=== PATIENT | female | born 2000 | race Caucasian/White ===

== ENCOUNTER 2020-07-10 19:53 | Emergency (ER) | payer OTHER ==
[~2020-07-10] VITALS: Ht 162.6 cm; Wt 63.4 kg
--- NOTE | 2020-07-10 20:04 | NUR ---
TOXICOLOGY TEACHER: EKG DONE IN TRIAGE
--- NOTE | 2020-07-10 20:15 | NUR ---
19 YEAR OLD FEMALE TO ED FOR ANXIETY AFTER INGESTING AN EDIBLE COMPOSED OF MARIJUANA. SHE IS TACHYPNEIC, ANXIOUS, AND TACHCARDIC. SKIN WARM AND DRY. SHE IS IN NO APPARENT DISTRESS. FAMILY AT BEDSIDE.
[2020-07-10] MEDS ORDERED: SODIUM CHLORIDE 0.9% 1,000 ML IV ONE (20:20)
[2020-07-10] MEDS ORDERED: LORazepam 2 MG/ML, 1ML ONE (20:25)
[2020-07-10] MEDS ORDERED: ONDANSETRON 2MG/ML, 2ML ONE (20:26)
[2020-07-10] MEDS ORDERED: SODIUM CHLORIDE 0.9% 1,000ML IVBOLUS ONE (20:30)
[2020-07-10] MEDS ORDERED: LORazepam 2 MG/ML, 1ML IVPush ONE (20:30)
[2020-07-10] MEDS ORDERED: ONDANSETRON 2MG/ML, 2ML IVPush ONE (20:30)
[2020-07-10 21:16] VITALS: BP 106/72
--- NOTE | 2020-07-10 21:38 | NUR ---
PATIENT RESTING COMFORTABLY AND CALM WITH FAMILY AT BEDSIDE. VSS.
[2020-07-10] MEDS ORDERED: LORazepam 1MG TABLET PO ONE (22:30)
[2020-07-10] MEDS ORDERED: LORazepam 1MG TABLET ONE (22:38)
--- NOTE | 2020-07-10 23:09 | NUR ---
Patient given d/c paperwork. She ambulated off unit in a steady gait with family member.
== END 2020-07-10 23:13 | disposition home or self-care (01) ==
LOC: ED 21:05
DX: T40.7X1A Poisoning by cannabis (derivatives), accidental (unintentional), initial encounter (principal); R11.2 Nausea with vomiting, unspecified; F41.1 Generalized anxiety disorder; R00.0 Tachycardia, unspecified; Y92.89 Other specified places as the place of occurrence of the external cause
CPT/HCPCS: 93005; 96361; 96374; 96375; 99284; J2060; J2405; J7030